=== PATIENT | female | born 1960 | race Caucasian/White ===

== ENCOUNTER 2018-05-09 06:02 | Emergency (ER) | payer BC, OTHER ==
[2018-05-09 06:11] VITALS: BP 177/86
--- NOTE | 2018-05-09 06:35 | ER Document Report ---
ED Extremity Problem, Upper - General Chief Complaint: Arm Injury Stated Complaint: ARM INJURY Time Seen by Provider: 05/09/18 06:22 TRAVEL OUTSIDE OF THE [place] IN LAST 30 DAYS: No - HPI Notes: Patient is a 57-year-old female that presents to the emergency department for chief complaint of left forearm pain. Patient's pain started 1 week ago. It is worse with movement and relieved with rest and Aleve. She denies any radiation of her pain. She states it is a achy crampy pain. She denies any direct injury or trauma. 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 She denies any fevers. Past Medical History: Negative Past Surgical History: Negative Social History: Daily tobacco. Denies drugs and alcohol Family History: Reviewed and noncontributory for presenting illness Allergies: Reviewed, see documented allergy list. REVIEW OF SYSTEMS: CONSTITUTIONAL : No fever No chills No diaphoresis No recent illness EENT: No vision changes No congestion No sore throat CARDIOVASCULAR: No chest pain No palpitations RESPIRATORY: No shortness of breath No cough No difficulty breathing GASTROINTESTINAL: No abdominal pain No nausea No vomiting No diarrhea GENITOURINARY: No dysuria No hematuria No difficulty urinating MUSCULOSKELETAL: No back pain No leg pain arm pain SKIN: No rashes No lesions LYMPHATIC: No swollen, enlarged glands. NEUROLOGICAL: No lightheadedness No headache No weakness No paresthesias PSYCHIATRIC: No anxiety No depression PHYSICAL EXAMINATION: Vital signs reviewed, nursing noted reviewed. GENERAL: Well-appearing, well-nourished and in no acute distress. HEAD: Atraumatic, normocephalic. EYES: Eyes appear normal, extraocular movements intact, sclera anicteric, conjunctiva are normal. ENT: nares patent, oropharynx clear without exudates. Moist mucous membranes. NECK: Normal range of motion, supple without lymphadenopathy LUNGS: Breath sounds clear to auscultation bilaterally and equal. No wheezes rales or rhonchi. HEART: Regular rate and rhythm without murmurs ABDOMEN: Soft, nontender, normoactive bowel sounds. No rebound, guarding, or rigidity. No masses appreciated. EXTREMITIES: Left forearm tenderness and tenderness at insertion point of biceps tendon in the elbow. Good range of motion, no pitting or edema. No bony tenderness or long bone deformity. NEUROLOGICAL: No focal neurological deficits. Moves all extremities spontaneously Motor and sensory grossly intact on exam. PSYCH: Normal mood, normal affect. SKIN: Warm, Dry, normal turgor, no rashes or lesions noted on exposed skin - Related Data Allergies/Adverse Reactions: No Known Drug Allergies Allergy (Verified 04/09/14 13:55) Past Medical History - Social History Smoking Status: Current Some Day Smoker Chew tobacco use (# tins/day): No Frequency of alcohol use: None Drug Abuse: None Family History: Reviewed & Not Pertinent Patient has suicidal ideation: No Patient has homicidal ideation: No Renal/ Medical History: Denies: Hx Peritoneal Dialysis - Immunizations Hx Diphtheria, Pertussis, Tetanus Vaccination: Yes Review of Systems - Review of Systems Notes: Dictated Physical Exam - Vital signs Vitals: Temp Pulse Resp BP Pulse Ox 97.8 F 78 20 177/86 H 100 05/09/18 06:09 05/09/18 06:09 05/09/18 06:09 05/09/18 06:09 05/09/18 06:09 - Notes Notes: Dictated Course - Re-evaluation Re-evalutation: 05/09/18 06:34 Vitals stable. Nursing notes reviewed. Patient offered medication for pain but declined. She was given a sling for comfort. Her symptoms are consistent with tendinitis from repetitive motions at work. She will be started on ibuprofen. She was counseled on ice, rest, stretching and massage. She will be given a few days off of work. Patient will return for new or worsening symptoms. - Vital Signs Vital signs: Temp Pulse Resp BP Pulse Ox 97.8 F 78 20 177/86 H 100 05/09/18 06:09 05/09/18 06:09 05/09/18 06:09 05/09/18 06:09 05/09/18 06:09 Discharge - Discharge Clinical Impression: Forearm tendonitis Condition: Stable Disposition: HOME, SELF-CARE Instructions: Tendonitis ([facility]) Additional Instructions: Please return to the emergency department if you have any worsening, or concern of your symptoms. Please return to the emergency department if you develop chest pain, difficulty breathing, severe abdominal pain, or ongoing vomiting. Please follow-up with your primary care physician in 2-3 days and any other recommended physicians. If prescribed, take all medications as directed. If you have any questions or concerns do not hesitate to return the emergency department for evaluation. 3-4 times a day you need to remove the sling and move your arm in all directions so you do not get frozen shoulder. Apply ice to your left forearm for 20 minutes at a time 2-3 times daily. Prescriptions: Ibuprofen 600 mg PO Q6 #30 tablet Forms: Return to Work
== END 2018-05-09 06:54 | disposition home or self-care (01) ==
LOC: ER 06:02
DX: M77.8 Other enthesopathies, not elsewhere classified (principal); X50.3XXA Overexertion from repetitive movements, initial encounter; F17.200 Nicotine dependence, unspecified, uncomplicated
CPT/HCPCS: 99283

== ENCOUNTER 2019-01-14 19:26 | Emergency (ER) | payer BC ==
[2019-01-14 20:13] VITALS: BP 158/81
== END 2019-01-14 22:35 | disposition left against medical advice (07) ==
LOC: ER 19:26
DX: Z53.21 Procedure and treatment not carried out due to patient leaving prior to being seen by health care provider (principal)

== ENCOUNTER 2019-01-15 19:31 | Emergency (ER) | payer OTHER, BC ==
[2019-01-15] MEDS ORDERED: DIPH/PERTUSS(ACELL)/TETANUS VAC/PF 0.5 ML SYR (>=10YO) IM ONE (20:17)
[2019-01-15] MEDS ORDERED: CEPHALEXIN 500 MG CAPSULE PO ONE (20:18)
--- NOTE | 2019-01-15 20:19 | ER Document Report ---
HPI - HPI Patient complains to provider of: Finger laceration Time Seen by Provider: 01/15/19 20:13 Onset: Yesterday Onset/Duration: Persistent Quality of pain: Achy Pain Level: 2 Context: Patient states that she cut her left second finger yesterday with a knife. Patient states that she did not want to continue to wait to be seen in the ER yesterday so decided to come tonight to get her tetanus updated. Associated Symptoms: Other - Finger laceration Exacerbated by: Movement Relieved by: Denies Similar symptoms previously: No Recently seen / treated by doctor: No - ROS ROS below otherwise negative: Yes Systems Reviewed and Negative: Yes All other systems reviewed and negative - CONSTITUTIONAL Constitutional: DENIES: Fever, Chills - REPRODUCTIVE Reproductive: DENIES: : - MUSCULOSKELETAL Musculoskeletal: REPORTS: Extremity pain - DERM Skin Problems: Laceration Past Medical History - General Information source: Patient - Social History Smoking Status: Current Every Day Smoker Frequency of alcohol use: None Drug Abuse: None Occupation: Foodservice Family History: Reviewed & Not Pertinent Patient has suicidal ideation: No Patient has homicidal ideation: No - Medical History Medical History: Negative Renal/ Medical History: Denies: Hx Peritoneal Dialysis Surgical Hx: Negative - Immunizations Hx Diphtheria, Pertussis, Tetanus Vaccination: Yes Vertical Provider Document - CONSTITUTIONAL Agree With Documented VS: Yes Exam Limitations: No Limitations General Appearance: WD/WN, No Apparent Distress - INFECTION CONTROL TRAVEL OUTSIDE OF THE [place] IN LAST 30 DAYS: No - HEENT HEENT: Atraumatic, Normocephalic - NECK Neck: Normal Inspection - RESPIRATORY Respiratory: No Respiratory Distress - CARDIOVASCULAR Pulses: Normal: Radial - MUSCULOSKELETAL/EXTREMETIES Musculoskeletal/Extremeties: JUDD, FROM Notes: No tendon deficit, full range of motion to left second finger - NEURO Level of Consciousness: Awake, Alert, Appropriate Motor/Sensory: No Motor Deficit - DERM Integumentary: Warm, Dry, Laceration - 3 cm laceration to left second digit, wound edges approximated, no active bleeding, no surrounding erythema. Course - Vital Signs Vital signs: Temp Pulse Resp BP Pulse Ox 97.6 F 82 16 167/81 H 97 01/15/19 19:57 01/15/19 19:57 01/15/19 19:57 01/15/19 19:57 01/15/19 19:57 Discharge - Discharge Clinical Impression: Finger laceration Qualifiers: Encounter type: initial encounter Finger: index finger Damage to nail status: without damage Foreign body presence: without foreign body Laterality: left Qualified Code(s): S61.211A - Laceration without foreign body of left index finger without damage to nail, initial encounter Condition: Stable Disposition: HOME, SELF-CARE Instructions: Non-Sutured Laceration ([facility]), Prophylactic Antibiotic ([facility]), Tetanus Immunization Given ([facility]) Additional Instructions: Return immediately for any new or worsening symptoms Followup with your primary care provider, call tomorrow to make a followup appointment Keep wound covered as it continues to heal Prescriptions: Cephalexin Monohydrate [Keflex 500 mg Capsule] 500 mg PO Q6H 5 Days capsule Forms: Return to Work Referrals: SANDHYA NI DO [ACTIVE STAFF] - Follow up as needed
[2019-01-15 20:44] VITALS: BP 161/87
== END 2019-01-15 20:45 | disposition home or self-care (01) ==
LOC: ER 19:31
DX: S61.211A Laceration without foreign body of left index finger without damage to nail, initial encounter (principal); W26.0XXA Contact with knife, initial encounter; F17.200 Nicotine dependence, unspecified, uncomplicated
CPT/HCPCS: 90471; 90715; 99282

== ENCOUNTER 2019-02-18 14:49 | Emergency (ER) | payer OTHER, BC ==
--- NOTE | 2019-02-18 15:55 | ER Document Report ---
HPI - HPI Time Seen by Provider: 02/18/19 15:38 Pain Level: 5 Notes: 4-year-old female presents the ED with complaints of right third finger pain, thinks she had it last night not sure however today is in contracture. No medications tried [id number], no numbness or tingling in fingers. Pain with trying to move finger is 7 out of 10, throbbing achy. Denies any other area of injury. Denies fevers, chills, chest pain,palpitations, shortness of breath, dyspnea, nausea, vomiting, diarrhea, abdominal pain, hematuria,blurred vision, double vision, loss of vision, speech changes, LH, dizziness, syncope, headaches, wheezing, ST, URI, neck pain, weakness, bowel or bladder dysfunction, saddle anesthesia, numbness or tingling in bilateral upper or lower extremities equally, muscle paralysis, weakness in bilateral upper or lower extremities equally or rash. - REPRODUCTIVE Reproductive: DENIES: : Past Medical History - General Information source: Patient - Social History Smoking Status: Unknown if Ever Smoked Family History: Reviewed & Not Pertinent Renal/ Medical History: Denies: Hx Peritoneal Dialysis - Immunizations Hx Diphtheria, Pertussis, Tetanus Vaccination: Yes Vertical Provider Document - CONSTITUTIONAL Agree With Documented VS: Yes Notes: PHYSICAL EXAMINATION: GENERAL: Well-appearing, well-nourished and in no acute distress. HEAD: Atraumatic, normocephalic. NECK: Normal range of motion, supple without lymphadenopathy LUNGS: Breath sounds clear to auscultation bilaterally and equal. No wheezes r ales or rhonchi. HEART: Regular rate and rhythm without murmurs ABDOMEN: Soft, nontender, nondistended abdomen. No guarding, no rebound. No masses appreciated. Female : deferred Musculoskeletal: Normal range of motion, no pitting or edema. No cyanosis. Pain to right 3rd phalange, in contracture. no pain to wrist with flexion, extension, inversion, eversion of wrist. digits in right and left with full aprom.. Insurance Verification Representative + 2 BUE equally. Snuffbox tenderness negative on right. radial pulses + 2 BUE equally. Negative kanavels sign. No open wounds or drainage from wrist. No vascular compromise.No body crepitus or focal area of TTP. no pain with opposition, flexion, extension, abduction and adduction on right. Motor and sensory function of ulnar, radial, medial nerves intact bilaterally and equally. NEUROLOGICAL: Cranial nerves grossly intact. Normal speech, normal gait. Normal sensory, motor exams PSYCH: Normal mood, normal affect. SKIN: Warm, Dry, normal turgor, no rashes or lesions noted. - INFECTION CONTROL TRAVEL OUTSIDE OF THE [place] IN LAST 30 DAYS: No Course - Re-evaluation Re-evalutation: 02/18/19 17:29 58-year-old female, vitals stable no distress, afebrile. Nurse's notes reviewed. X-ray showed no acute fracture dislocation however unable to straighten finger for x-ray. Passive extension of finger, able to straighten the finger, placed in finger splint. Consent by patient given to place finger splint to right 3rd finger,. cms intact, sensory motor function intact in bilateral upper extremities prior to splint application fiberglass splint placed without incident. cms intact 20 minutes after splint application. Splint is in good alignment. Bilateral upper extremities with motor and sensory function intact 20 minutes after application. Pt stated that splint felt comfortable. After performing a Medical Screening Examination, I estimate there is LOW risk for OPEN FRACTURE, COMPARTMENT SYNDROME, TENDON RUPTURE, ACUTE NEUROVASCULAR INJURY, or RETAINED FOREIGN BODY, thus I consider the discharge disposition reasonable. Also, there is no evidence or peritonitis, sepsis, or toxicity. I have reevaluated this patient multiple times and no significant life threatening changes are noted. The patient and I have discussed the diagnosis and risks, and we agree with discharging home with close follow-up with the understanding that symptoms and presentations can change. We also discussed returning to the Emergency Department immediately if new or worsening symptoms occur. We have discussed the symptoms which are most concerning (e.g., changing or worsening pain, fever, numbness, weakness, cool or painful digits) that necessitate immediate return. - Vital Signs Vital signs: Temp Pulse Resp BP Pulse Ox 97.5 F 79 18 154/84 H 96 02/18/19 15:19 02/18/19 15:19 02/18/19 15:19 02/18/19 15:19 02/18/19 15:19 Discharge - Discharge Clinical Impression: Trigger finger Condition: Stable Disposition: HOME, SELF-CARE Instructions: Michael Taping (fingers) [facility]), Sprained Finger ([facility]) Additional Instructions: Orthopedic Office [facility] [address] [facility] [address] [place] [address] phone: [phone] Return immediately for any new or worsening symptoms. Follow up with primary care provider, call tomorrow to make followup appointment. Prescriptions: Naproxen 500 mg PO BID #10 tablet Forms: Return to Work Referrals: ROSALIA BYERS MD [ASSOCIATE] - Follow up tomorrow MODESTA MCKEON MD [ACTIVE STAFF] - Follow up as needed
--- NOTE | 2019-02-18 16:41 | RADIOLOGY REPORT (SQ) ---
EXAM DESCRIPTION: HAND RIGHT 3 VIEWS COMPLETED DATE/TIME: 02/18/2019 4:31 pm REASON FOR STUDY: hand pain, trigger finger COMPARISON: None. EXAM PARAMETERS: NUMBER OF VIEWS: Three views. TECHNIQUE: AP, lateral and oblique radiographic images acquired of the right hand. LIMITATIONS: Unable to straighten the right 3rd finger FINDINGS: MINERALIZATION: Normal. BONES: No acute fracture or dislocation. No worrisome bone lesions. JOINTS: No effusions. SOFT TISSUES: No soft tissue swelling. No foreign body. OTHER: No other significant finding. IMPRESSION: Unable to straight the right 3rd finger for radiographs. No gross acute displaced fract ure is present. TECHNICAL DOCUMENTATION: JOB ID: [id number] [employer]- All Rights Reserved Reading location - IP/workstation name: [email or web address]
[2019-02-18 17:10] VITALS: BP 157/94
== END 2019-02-18 17:28 | disposition home or self-care (01) ==
LOC: ER 14:49
DX: M65.331 Trigger finger, right middle finger (principal)
CPT/HCPCS: 99283

== ENCOUNTER 2019-03-11 13:17 | Emergency (ER) | payer BC, OTHER ==
--- NOTE | 2019-03-11 13:50 | ER Document Report ---
ED Medical Screen (RME) - General Chief Complaint: Near Syncope Stated Complaint: DIZZINESS Time Seen by Provider: 03/11/19 13:44 Mode of Arrival: Medic Information source: Patient Notes: This 58-year-old female presents to the emergency department with complaints of dizziness felt like she was going to pass out. 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 She reports she became extremely hot felt like she was dizzy felt like darkness was all around her her chest got tight she felt like she could not breathe. She went to the bathroom splash water on her face felt a little bit better when she resumed washing dishes symptoms return. Patient denies fever vomiting diarrhea. Reports that she drank about 8 bottles of water last night but she is not had anything to drink this morning. Denies history of cardiac disease. Denies past medical history reports she does not take medications for anything. Patient feels better now. Respiratory rate even unlabored denies chest pain at this time. I have greeted and performed a rapid initial assessment of this patient. A comprehensive ED assessment and evaluation of the patient, analysis of test results and completion of the medical decision making process will be conducted by additional ED providers. Dictation of this chart was performed using voice recognition software; therefore, there may be some unintended grammatical errors. TRAVEL OUTSIDE OF THE [place] IN LAST 30 DAYS: No - Related Data Allergies/Adverse Reactions: No Known Drug Allergies Allergy (Verified 03/11/19 13:20) Past Medical History - Social History Chew tobacco use (# tins/day): No Frequency of alcohol use: None Drug Abuse: None Renal/ Medical History: Denies: Hx Peritoneal Dialysis Past Surgical History: Reports: Hx Section - x3 - Immunizations Hx Diphtheria, Pertussis, Tetanus Vaccination: Yes Physical Exam - Vital signs Vitals: Temp Pulse Resp BP Pulse Ox 97.7 F 84 22 H 139/67 H 98 03/11/19 13:26 03/11/19 13:26 03/11/19 13:03/11/19 13:03/11/19 13:26 Course - Vital Signs Vital signs: Temp Pulse Resp BP Pulse Ox 97.7 F 84 22 H 139/67 H 98 03/11/19 13:26 03/11/19 13:26 03/11/19 13:26 03/11/19 13:26 03/11/19 13:26
--- NOTE | 2019-03-11 14:11 | RADIOLOGY REPORT (SQ) ---
EXAM DESCRIPTION: CHEST 2 VIEWS COMPLETED DATE/TIME: 03/11/2019 2:02 pm REASON FOR STUDY: chest tight COMPARISON: None. EXAM PARAMETERS: NUMBER OF VIEWS: two views TECHNIQUE: Digital Frontal and Lateral radiographic views of the chest acquired. RADIATION DOSE: NA LIMITATIONS: none FINDINGS: LUNGS AND PLEURA: No opacities, masses or pneumothorax. No pleural effusion. MEDIASTINUM AND HILAR STRUCTURES: No masses or contour abnormalities. HEART AND VASCULAR STRUCTURES: Heart normal size. No evidence for failure. BONES: No acute findings. HARDWARE: None in the chest. OTHER: No other significant finding. IMPRESSION: No evidence of acute cardiopulmonary process. TECHNICAL DOCUMENTATION: JOB ID: [id number] [employer]- All Rights Reserved Reading location - IP/workstation name: [email or web address]
[2019-03-11 14:30] LABS: ABSOLUTE LYMPHOCYTES (AUTO) 1.9 10^3/uL (0.5-4.7); ABSOLUTE MONOCYTES (AUTO) 0.6 10^3/uL (0.1-1.4); ABSOLUTE NEUT (AUTO) 7.3 10^3/uL (1.7-8.2); BASOPHILS % (AUTO) 0.4 % (0-2); EOSINOPHILS % (AUTO) 0.4 % (0-6); HEMATOCRIT 38.1 % (36.0-47.0); HEMOGLOBIN 12.7 g/dL (12.0-15.5); LYMPHOCYTES % (AUTO) 19.3 % (13-45); MEAN CORPUSCULAR HEMOGLOBIN 28.8 pg (27.0-33.4); MEAN CORPUSCULAR HGB CONC 33.4 g/dL (32.0-36.0); MEAN CORPUSCULAR VOLUME 86 fl (80-97); MONOCYTES % (AUTO) 5.9 % (3-13); PLATELET COUNT 223 10^3/uL (150-450); RED BLOOD COUNT 4.41 10^6/uL (3.72-5.28); RED CELL DISTRIBUTION WIDTH 15.2 % (11.5-14.0); TOTAL CELLS COUNTED % (AUTO) 100 %; WHITE BLOOD COUNT 9.8 10^3/uL (4.0-10.5)
[2019-03-11 14:39] LABS: APPEARANCE,URINE SLIGHTLY-CLOUDY; BILIRUBIN,URINE NEGATIVE (NEGATIVE); COLOR,URINE YELLOW; GLUCOSE, URINE NEGATIVE (NEGATIVE); KETONES,URINE NEGATIVE (NEGATIVE); LEUKOCYTE ESTERASE,URINE NEGATIVE (NEGATIVE); NITRITE,URINE NEGATIVE (NEGATIVE); PROTEIN,URINE 30 mg/dL (NEGATIVE)
[2019-03-11 14:58] LABS: ALBUMIN 4.4 g/dL (3.5-5.0); ALKALINE PHOSPHATASE 71 U/L (38-126); ANION GAP 7 (5-19); ASPARTATE AMINO TRANSFERASE 22 U/L (14-36); BILIRUBIN,DIRECT 0.2 mg/dL (0.0-0.4); BILIRUBIN,TOTAL 0.4 mg/dL (0.2-1.3); BLOOD UREA NITROGEN 10 mg/dL (7-20); CALCIUM 9.2 mg/dL (8.4-10.2); CARBON DIOXIDE 27 mmol/L (22-30); CHLORIDE 107 mmol/L (98-107); CREATINE KINASE 98 U/L (30-135); GLUCOSE 107 mg/dL (75-110); POTASSIUM 3.3 mmol/L (3.6-5.0); TOTAL PROTEIN 7.5 g/dL (6.3-8.2)
--- NOTE | 2019-03-11 15:35 | ER Document Report ---
ED General - General Chief Complaint: Near Syncope Stated Complaint: DIZZINESS Time Seen by Provider: 03/11/19 13:44 Primary Care Provider: [facility] [Provider Group] - Follow up in 1 week Mode of Arrival: Medic TRAVEL OUTSIDE OF THE [place] IN LAST 30 DAYS: No - HPI Notes: 58-year-old female to the emergency department with complaints of li ghtheadedness and near syncope just prior to arrival. 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 She states that she went to the bathroom to wash letter on her face and began to feel worse. She states that she felt lightheaded and nauseated. She states that she decided to return back to work and as she walked back she began to feel like she was going to truly pass out. She states that she had her vision started to tunnel out and go black. She states that she sat down and the sensation started to disappear. Medics were called. They gave her about 450 of normal saline in route. Patient states that she is feeling better now she is in the cool air and has had a little bit of IV fluids. She denies any chest pain, abdominal pain, headache, current blurry vision, extremity weakness, or any other complaints. - Related Data Allergies/Adverse Reactions: No Known Drug Allergies Allergy (Verified 03/11/19 13:20) Past Medical History - General Information source: Patient - Social History Smoking Status: Current Every Day Smoker Chew tobacco use (# tins/day): No Frequency of alcohol use: None Drug Abuse: None Family History: Reviewed & Not Pertinent Patient has suicidal ideation: No Patient has homicidal ideation: No Renal/ Medical History: Denies: Hx Peritoneal Dialysis Past Surgical History: Reports: Hx Section - x3 - Immunizations Hx Diphtheria, Pertussis, Tetanus Vaccination: Yes Review of Systems - Review of Systems Constitutional: Diaphoresis. denies: Chills, Fever EENT: No symptoms reported Cardiovascular: Lightheaded, Other - Near syncopal episode. denies: Chest pain, Palpitations, Dyspnea, Dizziness Respiratory: denies: Cough, Short of breath Gastrointestinal: Nausea. denies: Abdominal pain, Diarrhea, Vomiting Genitourinary: denies: Frequency, Flank pain Musculoskeletal: No symptoms reported Skin: No symptoms reported Hematologic/Lymphatic: No symptoms reported Neurological/Psychological: No symptoms reported -: Yes All other systems reviewed and negative Physical Exam - Vital signs Vitals: Temp Pulse Resp BP Pulse Ox 97.7 F 84 22 H 139/67 H 98 03/11/19 13:26 03/11/19 13:26 03/11/19 13:26 03/11/19 13:26 03/11/19 13:26 - General General appearance: Appears well, Alert - HEENT Head: Normocephalic, Atraumatic Eyes: Normal Pupils: PERRL - Respiratory Respiratory status: No respiratory distress Chest status: Nontender Breath sounds: Normal Chest palpation: Normal - Cardiovascular Rhythm: Regular Heart sounds: Normal auscultation Murmur: No - Abdominal Inspection: Normal Distension: No distension Bowel sounds: Normal Tenderness: Nontender Organomegaly: No organomegaly - Back Back: Normal, Nontender - Neurological Neuro grossly intact: Yes Cognition: Normal Orientation: AAOx4 Eliezer Coma Scale Eye Opening: Spontaneous [place]iezer Coma Scale Verbal: Oriented [place] Coma Scale Motor: Obeys Commands Eliezer Coma Scale Total: 15 Speech: Normal Cranial nerves: Normal Cerebellar coordination: Normal. No: Gait ataxia Motor strength normal: LUE, RUE, LLE, RLE Additional motor exam normals: Equal speech and language specialist. No: Pronator drift Sensory: Normal - Psychological Associated symptoms: Normal affect, Normal mood - Skin Skin Temperature: Warm Skin Moisture: Dry Skin Color: Normal Course - Re-evaluation Re-evalutation: 03/11/19 17:28 Patient. She states that she is feeling better after 1 L of fluids. She is not orthostatic. Noted potassium which is a little low. Gave p.o. potassium. Did ambulate the patient. She was able to ambulate but states that she still felt a little lightheaded. We will give another 500 mL of normal saline and then to repeat ambulation. 03/11/19 Patient is much improved. She has been able to ambulate about the emergency department with no lightheadedness. She would like to go home. Have encouraged her to stay out of the heat. To push fluids. And to return if any worsening symptoms. She agrees with the plan Impression: Acute exposure, hypokalemia, near syncope. Patient is doing much better after fluids today in the emergency department. Gave 40 of potassium patient and have encouraged her to eat leafy greens and take a multivitamin. We will have her follow-up with primary care. Encouraged her to stay out of the h eat. Push fluids. Return if any worsening symptoms such as passing out, dizziness, chest pain, shortness of breath, or any other complaints. - Vital Signs Vital signs: Temp Pulse Resp BP Pulse Ox 97.7 F 89 18 155/83 H 97 03/11/19 13:26 03/11/19 16:59 03/11/19 19:06 03/11/19 19:05 03/11/19 19:05 Noted improved vital signs. - Laboratory Result Diagrams: 03/11/19 14:13 03/11/19 14:13 Laboratory results interpreted by me: 03/11/19 03/11/19 03/11/19 14:13 14:13 14:13 RDW 15.2 H Potassium 3.3 L Urine Protein 30 H Urine Urobilinogen 2.0 H - Diagnostic Test Radiology reviewed: Image reviewed, Reports reviewed - EKG Interpretation by Me EKG shows normal: Sinus rhythm Rate: Normal Rhythm: NSR Voltage: Consistant with LVH When compared to previous EKG there are: Previous EKG unavailable Additional EKG results interpreted by me: 03/11/19 No STEMI. Positive LVH. No comparison available. Discharge - Discharge Clinical Impression: Near syncope, Hypokalemia, Heat exposure Condition: Stable Disposition: HOME, SELF-CARE Instructions: Dehydration ([facility]), Heat Exhaustion ([facility]), Hypokalemia ([facility]) Additional Instructions: PUSH FLUIDS. REST AT HOME. FOLLOW UP WITH YOUR PRIMARY CARE PHYSICIAN WITHOUT FAIL. TAKE A DAILY MULTIVITAMIN. RETURN IF WORSENING SYMPTOMS, PASSING OUT, CHEST PAIN, OR ANY OTHER CONCERNS. Referrals: [facility] [Provider Group] - Follow up in 1 week
[2019-03-11] MEDS ORDERED: POTASSIUM CHLORIDE 10 MEQ CAPSULE.ER PO ONE (16:08)
[2019-03-11] MEDS ORDERED: NORMAL SALINE 1000 ML 1,000 ML IV ONE (16:08)
[2019-03-11] MEDS ORDERED: NORMAL SALINE 500 ML IV ONE (17:27)
--- NOTE | 2019-03-11 17:40 | EKG REPORT ---
SEVERITY:- ABNORMAL ECG - SINUS RHYTHM PROBABLE LEFT ATRIAL ABNORMALITY LEFT VENTRICULAR HYPERTROPHY BORDERLINE T ABNORMALITIES, INFERIOR LEADS : Confirmed by: Jose Guadalupe Dial MD 11-Mar-2019 17:39:16
[2019-03-11 19:05] VITALS: BP 155/83
== END 2019-03-11 19:12 | disposition home or self-care (01) ==
LOC: ER 13:17
DX: R55 Syncope and collapse (principal); E87.6 Hypokalemia; R42 Dizziness and giddiness; R61 Generalized hyperhidrosis; W92.XXXA Exposure to excessive heat of man-made origin, initial encounter; Y99.0 Civilian activity done for income or pay; F17.200 Nicotine dependence, unspecified, uncomplicated
CPT/HCPCS: 93005; 36415; 82550; 85025; 80053; 81001; 84484; 71046; 93010; J7030; J7040